=== PATIENT | female | born 1990 | race American Indian/Alaskan Native ===

== ENCOUNTER 2018-01-15 03:44 | Emergency (ER) | payer MEDICAID | END 2018-01-15 03:55 | disposition left against medical advice (07) | LOC: ED 03:44 | DX: R10.9 Unspecified abdominal pain (principal); Z53.21 Procedure and treatment not carried out due to patient leaving prior to being seen by health care provider ==

== ENCOUNTER 2019-01-19 09:16 | Emergency (ER) | payer MEDICAID ==
[2019-01-19 09:58] VITALS: BP 98/55
[2019-01-19 10:42] LABS: Bilirubin,Urine NEG (Negative); Blood,Urine LG (Negative); Color,Urine Red (Yellow); Mucus,Urine 1+ /HPF; Urobilinogen,Urine < 2.0 mg/dL (<2.0)
[2019-01-19 10:43] LABS: RBC,Urine > 182.0 /HPF (0.0-6.0)
[2019-01-19 10:47] LABS: WBC,Urine < 1.0 /HPF (0.0-6.0)
[2019-01-19 10:51] LABS: HCG Qualitative,Urine Negative (Negative)
--- NOTE | 2019-01-19 12:18 | Emergency Department Report ---
ED Abdominal Pain HPI - General Chief Complaint: Abdominal Pain Stated Complaint: ABD PAIN Time Seen by Provider: 01/19/19 10:26 Source: patient Mode of arrival: Ambulatory Limitations: No Limitations - History of Present Illness Initial Comments: This is a 28-year-old -[place] female who presents to the emergency room with pelvic pain that started with menses on 01/16/2019. Patient reports pain for the past 3-4 months with menses since being diagnosed with endometriosis. Past medical history of irritable bowel syndrome and endometriosis. Patient states she was supposed to follow up with [facility] Dr. Clark haven't been able to. Patient states she took ibuprofen 800 mg prior to arrival which has improved pain. She also reports heavy bleeding without clots. She denies lightheadedness, urinary frequency, urgency, dysuria, or back pain. MD Complaint: abdominal pain Onset/Timin -: days(s) Location: suprapubic Radiation: none Migration to: no migration Severity: severe Severity scale (0 -10): 10 Quality: cramping Consistency: constant Improves With: nothing Worsens With: nothing Associated Symptoms: denies other symptoms Treatments Prior to Arrival: NSAIDs - Related Data LMP Date: 01/16/19 Previous Rx's Medication Instructions Recorded Last Taken Type Docusate Sodium [Colace] 100 mg PO BID #60 capsule 02/23/13 Unknown Rx Albuterol Sulfate [Ventolin HFA] 2 puff IH Q4H PRN #1 hfa.aer.ad 09/18/13 Unknown Rx predniSONE [Deltasone] 20 mg PO QDAY #5 tab 09/18/13 Unknown Rx Ibuprofen [Motrin 600 MG tab] 800 mg PO Q8H PRN #30 tablet 09/24/18 Unknown Rx Sulfamethoxazole/Trimethoprim 1 each PO BID 10 Days #20 tablet 09/24/18 Unknown Rx [Bactrim DS TAB] traMADol [Ultram] 50 mg PO Q6HR PRN #12 tablet 09/24/18 Unknown Rx Allergies Allergy/AdvReac Type Severity Reaction Status Date / Time No Known Allergies Allergy Verified 02/17/13 02:38 ED Review of Systems ROS: Stated complaint: ABD PAIN Other details as noted in HPI Constitutional: denies: chills, fever Respiratory: denies: cough, shortness of breath, wheezing Cardiovascular: denies: chest pain, palpitations Gastrointestinal: abdominal pain. denies: nausea, diarrhea Skin: denies: rash, lesions Neurological: denies: headache, weakness, paresthesias Psychiatric: denies: anxiety, depression ED Past Medical Hx - Past Medical History Previous Medical History?: Yes Hx Hypertension: No Hx Congestive Heart Failure: No Hx Diabetes: No Hx Deep Vein Thrombosis: No Hx Renal Disease: No Hx Sickle Cell Disease: No Hx Seizures: No Hx Asthma: No Hx COPD: No Hx HIV: No Additional medical history: Endometriosis, IBS - Surgical History Past Surgical History?: Yes Additional Surgical History: Ex. Lap - Social History Smoking Status: Never Smoker Substance Use Type: None - Medications Home Medications: Home Medications Medication Instructions Recorded Confirmed Last Taken Type Docusate Sodium [Colace] 100 mg PO BID #60 capsule 02/23/13 Unknown Rx Albuterol Sulfate [Ventolin HFA] 2 puff IH Q4H PRN #1 hfa.aer.ad 09/18/13 Unknown Rx predniSONE [Deltasone] 20 mg PO QDAY #5 tab 09/18/13 Unknown Rx Ibuprofen [Motrin 600 MG tab] 800 mg PO Q8H PRN #30 tablet 09/24/18 Unknown Rx Sulfamethoxazole/Trimethoprim 1 each PO BID 10 Days #20 tablet 09/24/18 Unknown Rx [Bactrim DS TAB] traMADol [Ultram] 50 mg PO Q6HR PRN #12 tablet 09/24/18 Unknown Rx ED Physical Exam - General Limitations: No Limitations General appearance: alert, in no apparent distress - Respiratory Respiratory exam: Present: normal lung sounds bilaterally. Absent: respiratory distress - Cardiovascular Cardiovascular Exam: Present: regular rate, normal rhythm. Absent: systolic murmur, diastolic murmur, rubs, gallop - GI/Abdominal GI/Abdominal exam: Present: soft, normal bowel sounds. Absent: distended, tenderness, guarding, rebound, rigid - Back Exam Back exam: Absent: CVA tenderness (R), CVA tenderness (L) - Neurological Exam Neurological exam: Present: alert, oriented X3, normal gait - Psychiatric Psychiatric exam: Present: normal affect, normal mood - Skin Skin exam: Present: warm, dry, intact, normal color. Absent: rash ED Course Vital Signs 01/19/19 09:56 Temperature 98 F Pulse Rate 63 Respiratory 20 Rate Blood Pressure 98/55 O2 Sat by Pulse 99 Oximetry ED Medical Decision Making - Lab Data Lab Results 01/19/19 Range/Units 10:09 Urine Color Red (Yellow) Urine Turbidity Cloudy (Clear) Urine pH 5.0 (5.0-7.0) Ur Specific [place] 1.027 (1.003-1.030) Urine Protein 100 mg/dl (Negative) mg/dL Urine Glucose (UA) 50 (Negative) mg/dL Urine Ketones Neg (Negative) mg/dL Urine Blood Lg (Negative) Urine Nitrite Neg (Negative) Urine Bilirubin Neg (Negative) Urine Urobilinogen < 2.0 (<2.0) mg/dL Ur Leukocyte Esterase Sm (Negative) Urine WBC (Auto) < 1.0 (0.0-6.0) /HPF Urine RBC (Auto) > 182.0 (0.0-6.0) /HPF U Epithel Cells (Auto) 2.0 (0-13.0) /HPF Urine Mucus 1+ /HPF Urine HCG, Qual Negative (Negative) - Medical Decision Making This patient was seen by this provider. Vitals are stable. Past medical history of irritable bowel syndrome and endometriosis. Patient presents to the emergency room with severe abdominal cramps. Patient states she was diagnosed with endometriosis but never followed up with Dr. Clark. Reports pain monthly with menses. She took ibuprofen 800 mg prior to arrival which has improved pain. A urinalysis and urine test was obtained. Urinalysis findings of a large amount of blood and leukocyte esterase, negative test. The nursing staff states patient was not in room with attempt to offer pain medication. Critical care attestation.: If time is entered above; I have spent that time in minutes in the direct care of this critically ill patient, excluding procedure time. ED Disposition Clinical Impression: Left against medical advice Disposition: DC-07 LEFT AGAINST MED ADVICE Is pt being admited?: No Condition: Stable Instructions: Abdominal Pain (ED)
== END 2019-01-19 12:20 | disposition left against medical advice (07) ==
LOC: ED 09:16
DX: N71.9 Inflammatory disease of uterus, unspecified (principal); Z79.1 Long term (current) use of non-steroidal anti-inflammatories (NSAID); Z79.899 Other long term (current) drug therapy
CPT/HCPCS: 81001; 81025; 99283

== ENCOUNTER 2019-01-23 23:49 | Emergency (ER) | payer OTHER, MEDICAID ==
[2019-01-24] MEDS ORDERED: IBUPROFEN PO ONE (02:33)
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
[2019-01-24 03:51] VITALS: BP 103/66
== END 2019-01-24 03:50 | disposition home or self-care (01) ==
LOC: ED 23:49
DX: S39.012A Strain of muscle, fascia and tendon of lower back, initial encounter (principal); M79.604 Pain in right leg; V49.49XA Driver injured in collision with other motor vehicles in traffic accident, initial encounter; Y93.89 Activity, other specified; Y92.488 Other paved roadways as the place of occurrence of the external cause; Y99.8 Other external cause status
CPT/HCPCS: 99282

== ENCOUNTER 2020-07-06 07:03 | Day surgery (SDC) | payer MEDICAID, OTHER ==
[2020-07-06] MEDS ORDERED: HYDROmorphone 1 MG/1 ML INJ IV PRN (08:02)
[2020-07-06] MEDS ORDERED: ONDANSETRON 4 MG/2 ML INJ IV PRN (08:02)
--- NOTE | 2020-07-06 08:03 | Anesthesia Day of Surgery ---
Anesthesia Day of Surgery - Day of Surgery Patient Examined: Yes Patient H&P Reviewed: Yes Patient is NPO: Yes
--- NOTE | 2020-07-06 08:04 | Anesthesia Consultation ---
Anesthesia Consult and Med Hx Date of service: 07/06/20 - Airway Anesthetic Teeth Evaluation: Good ROM Head & Neck: Adequate Mental/Hyoid Distance: Adequate Mallampati Class: Class II Intubation Access Assessment: Good - Pre-Operative Health Status ASA Pre-Surgery Classification: ASA2 Proposed Anesthetic Plan: General - Pulmonary Hx Asthma: No Hx Respiratory Symptoms: No (+2FS) COPD: No Hx Pneumonia: No - Cardiovascular System Hx Hypertension: No - Central Nervous System Hx Seizures: No Hx Psychiatric Problems: No - Gastrointestinal Hx Gastroesophageal Reflux Disease: No (Constipation) - Endocrine Hx Renal Disease: No Hx End Stage Renal Disease: No Hx Hypothyroidism: No Hx Hyperthyroidism: No - Hematic Hx Anemia: No Hx Sickle Cell Disease: No - Other Systems Hx Alcohol Use: Yes (Occas) Hx Cancer: No
[2020-07-06] MEDS ORDERED: fentaNYL 100 MCG/2 ML INJ ONE (08:11)
[2020-07-06] MEDS ORDERED: ROCURONIUM 50 MG/5 ML INJ IV ONE (08:11)
[2020-07-06] MEDS ORDERED: LIDOCAINE MPF (2%) 20 MG/1 ML VIAL 5 ML ONE (08:11)
[2020-07-06] MEDS ORDERED: dexAMETHasone 20 MG/5 ML VIAL ONE (08:11)
[2020-07-06] MEDS ORDERED: propofoL 200 MG/20 ML VIAL IV ONE (08:12)
[2020-07-06] MEDS ORDERED: LACTATED RINGERS 1,000 ML IV SCH (08:15)
[2020-07-06] MEDS ORDERED: PHENYLEPHRINE/NS 1,000 MCG/10 ML SYRINGE (OR USE) IV ONE (09:00)
[2020-07-06] MEDS ORDERED: GLYCOPYRROLATE 0.4 MG/2 ML INJ ONE (09:00)
[2020-07-06] MEDS ORDERED: SUCCINYLCHOLINE CHLORIDE 200 MG/10 ML INJ MDV ONE (09:00)
[2020-07-06] MEDS ORDERED: NEOSTIGMINE 10MG/10 ML INJ MDV ONE (09:00)
--- NOTE | 2020-07-06 09:47 | Short Stay Summary ---
Short Stay Documentation Date of service: 07/06/20 Narrative H&P: 30-year-old -0-0-1 with a history of chronic pelvic pain. The patient has a history of an endometriosis in the past and has undergone medical therapy which and it has not completely alleviated her symptoms. The patient has elected to undergo surgical management to further identify a cause for her pain. - History Principal diagnosis: Chronic pelvic pain Past Medical History: other (Endometriosis) Past Surgical History: Other (Laparoscopy) Social history: single - Allergies and Medications Current Medications: Allergies Iodine and Iodide Containing Produc Allergy (Verified 06/29/20 10:03) Swelling Active Medications Hydromorphone HCl (Hydromorphone 1 Mg/1 Ml Inj) 0.25 mg IV Q10MIN PRN PRN Reason: Pain, Moderate (4-6) Stop: 07/06/20 23:00 Hydromorphone HCl (Hydromorphone 1 Mg/1 Ml Inj) 0.5 mg IV Q10MIN PRN PRN Reason: Pain , Severe (7-10) Stop: 07/06/20 23:00 Lactated Ringer's (Lactated Ringers) 1,000 mls @ 125 mls/hr IV DIRECT BONIFACIO Ondansetron HCl (Ondansetron 4 Mg/2 Ml Inj) 4 mg IV ONCE PRN PRN Reason: Nausea And Vomiting Stop: 07/06/20 18:00 - Physical exam General appearance: no acute distress Integumentary: no rash HEENT: Atraumatic Lungs: Clear to auscultation Breasts: deferred Heart: Regular rate Gastrointestinal: normal Female Genitourinary: deferred Rectal Exam: deferred Extremities: no ischemia Neurological: Normal gait - Brief post op/procedure progress note Date of procedure: 07/06/20 Pre-op diagnosis: Chronic pelvic pain Post-op diagnosis: same Procedure: Laparoscopy Anesthesia: VELVETA Surgeon: VINICIUS SZYMANSKI Estimated blood loss: none Pathology: none Condition: stable - Hospital course Hospital course: The patient was admitted the day of surgery and underwent a diagnostic laparoscopy. Please see operative note for details of surgery. Her postoperative course was uneventful. - Disposition Condition at discharge: Good Disposition: DC-01 TO HOME OR SELFCARE Short Stay Discharge Plan Activity: other (Pelvic rest for 1 week) Diet: regular Additional Instructions: Patient can schedule follow-up with Dr. Szymanski in 2 weeks Prescriptions: Naproxen [Naprosyn] 500 mg PO BID PRN #60 tablet PRN Reason: Pain , Severe (7-10) HYDROcodone/APAP 5-325 [[place] 5/325] 1 each PO Q6HR PRN #20 tablet PRN Reason: Pain
[2020-07-06] MEDS ORDERED: BUPIVACAINE/PF (0.5%) 5 MG/1 ML 30 ML VIAL INFILTRATI ONE ×2 (10:32→11:50)
[2020-07-06] MEDS ORDERED: MIDAZOLAM 2 MG/2 ML INJ ONE (11:00)
[2020-07-06] MEDS ORDERED: KETOROLAC 30 MG/1 ML INJ ONE (11:38)
--- NOTE | 2020-07-06 11:53 | Operative Report ---
Operative Report Operative Report: Date of surgery: July 06, 2020 Preoperative diagnosis: Chronic pelvic pain Postoperative diagnosis: Same as above Procedure: Diagnostic laparoscopy Surgeon: Anne Issa M.D. Anesthesia: General endotracheal anesthesia Estimated blood loss: Minimal Findings: Normal uterus tubes and ovaries Indication: 30-year-old -0-0-1 with a history of chronic pelvic pain. Patient's medical therapy was not adequately controlling her pain therefore she elected to undergo surgical management Procedure: The patient was taken to the operating room and given general endotracheal anesthesia without complication. The patient is prepped and draped in a normal sterile fashion. A bivalve speculum was placed in the patient's vagina and a single-tooth tenaculum was placed on the anterior lip of the cervix .A uterine acorn manipulator was placed, and the bivalve speculum was then removed. Attention was then turned to the patient's abdomen where a 5 mm infraumbilical skin incision was then made. A Veress needle was placed and peritoneal entry was verified water-filled syringe. Insufflation of the peritoneal cavity was performed with CO2 gas. A 5 mm trocar was placed and the laparoscope was then inserted. The patient was then placed in Trendelenburg. A 5 mm suprapubic skin incision was then made. Under direct visualization a 5 mm trocar was then placed. General survey of the patient's abdomen revealed normal uterus tubes and ovaries. There was evidence of a small amount of scarring in the posterior cul-de-sac however no endometriotic implants could be identified visually. No findings of pelvic adhesive disease. The trocars were then removed. The pneumoperitoneum was then released. The 5 mm trocar laparoscope was then removed. The skin incisions were then closed with 4-0 Monocryl. The incisions were injected with quarter percent Marcaine. Dressings were applied to the incision. The vaginal instruments were then removed atraumatically. Then successfully extubated and taken to the recovery room. All sponge laps and needle counts were correct x2.
[2020-07-06] MEDS: HYDROmorphone 1 MG/1 ML INJ IV PRN ×3 (12:19→12:38)
[2020-07-06 13:48] VITALS: BP 109/73
--- NOTE | 2020-07-06 13:58 | Post Anesthesia Evaluation ---
- Post Anesthesia Evaluation Patient Participated: Yes Airway Patent: Yes Stable Respiratory Function: Yes Nausea/Vomiting: No Temp > 96.8F: Yes Pain Manageable: Yes Adequeate Hydration: Yes Anesthesia Complications: No Block Receding Appropriately: Not Applicable Patient on Ventilator: No
== END 2020-07-06 07:04 | disposition home or self-care (01) ==
LOC: OR 07:03
PROVIDERS: ATTEND Obstetrics & Gynecology
DX: R10.2 Pelvic and perineal pain (principal); G89.29 Other chronic pain; K21.9 Gastro-esophageal reflux disease without esophagitis; Z72.89 Other problems related to lifestyle; Z79.899 Other long term (current) drug therapy; Z98.890 Other specified postprocedural states
CPT/HCPCS: 49320; 81025; J0330; J1100; J1170; J1885; J2250; J2370; J2405; J2704; J2710; J3010; J7120

== ENCOUNTER 2021-08-03 05:42 | Day surgery (SDC) | payer MEDICAID, OTHER ==
[~2021-08-03 05:42] MED LIST: LACTATED RINGERS 1,000 ML IV SCH; MIDAZOLAM 2 MG/2 ML INJ IV NR
--- NOTE | 2021-08-03 07:10 | Anesthesia Consultation ---
Anesthesia Consult and Med Hx - Airway Anesthetic Teeth Evaluation: Good ROM Head & Neck: Adequate Mental/Hyoid Distance: Adequate Mallampati Class: Class II Intubation Access Assessment: Good - Pulmonary Exam CTA: Yes - Cardiac Exam Cardiac Exam: RRR - Pre-Operative Health Status ASA Pre-Surgery Classification: ASA1 Proposed Anesthetic Plan: General (Labs and Chart reviewed. All questions answered) - Pulmonary Hx Asthma: No Hx Respiratory Symptoms: No (+2FS) COPD: No Hx Pneumonia: No - Cardiovascular System Hx Hypertension: No - Central Nervous System Hx Seizures: No Hx Psychiatric Problems: No - Gastrointestinal Hx Gastroesophageal Reflux Disease: No (Constipation) - Endocrine Hx Renal Disease: No Hx End Stage Renal Disease: No Hx Hypothyroidism: No Hx Hyperthyroidism: No - Hematic Hx Anemia: No Hx Sickle Cell Disease: No - Other Systems Hx Alcohol Use: Yes (Occas) Hx Cancer: No
--- NOTE | 2021-08-03 07:11 | Anesthesia Day of Surgery ---
Anesthesia Day of Surgery - Day of Surgery Patient Examined: Yes Patient H&P Reviewed: Yes Patient is NPO: Yes
[2021-08-03] MEDS ORDERED: ROCURONIUM 50 MG/5 ML INJ IV ONE (07:52)
[2021-08-03] MEDS ORDERED: LIDOCAINE MPF (2%) 20 MG/1 ML VIAL 5 ML ONE (07:52)
[2021-08-03] MEDS ORDERED: fentaNYL 250 MCG/5 ML INJ ONE (07:53)
[2021-08-03] MEDS ORDERED: propofoL 200 MG/20 ML VIAL IV ONE (07:53)
[2021-08-03] MEDS ORDERED: MIDAZOLAM 2 MG/2 ML INJ IV NR (08:00)
[2021-08-03] MEDS ORDERED: HYDROmorphone 1 MG/1 ML INJ IV PRN ×2 (08:05)
[2021-08-03] MEDS ORDERED: ONDANSETRON 4 MG/2 ML INJ IV PRN (08:05)
[2021-08-03] MEDS ORDERED: NALOXONE 0.4 MG/1 ML INJ IV PRN (08:05)
[2021-08-03] MEDS ORDERED: MEPERIDINE 25 MG/1 ML INJ IV PRN (08:05)
[2021-08-03] MEDS ORDERED: BUPIVACAINE/PF (0.5%) 5 MG/1 ML 10 ML VIAL INFILTRATI ONE ×2 (08:06→09:41)
--- NOTE | 2021-08-03 08:22 | Short Stay Summary ---
Short Stay Documentation Date of service: 08/03/21 Narrative H&P: 31-year-old -0-0-1 with a history of chronic pelvic pain. The patient reports worsening right lower quadrant pain. She had a pelvic ultrasound that demonstrated findings of an ovarian cyst. The patient has elected for surgical management of her symptoms. - History Principal diagnosis: Chronic pelvic pain Past Medical History: other (Endometriosis; depression) Past Surgical History: Other (Laparoscopy) Social history: single - Allergies and Medications Current Medications: Allergies Iodinated Contrast Media Allergy (Verified 08/03/21 07:21) Swelling Iodine and Iodide Containing Produc Allergy (Verified 07/26/21 17:56) Swelling Home Medications Medication Instructions Recorded Confirmed Last Taken Type No Known Home Medications [No 07/26/21 07/26/21 Unknown History Reported Home Medications] Active Medications Hydromorphone HCl (Hydromorphone 1 Mg/1 Ml Inj) 0.25 mg IV Q10MIN PRN PRN Reason: Pain, Moderate (4-6) Stop: 08/03/21 23:00 Hydromorphone HCl (Hydromorphone 1 Mg/1 Ml Inj) 0.5 mg IV Q10MIN PRN PRN Reason: Pain , Severe (7-10) Stop: 08/03/21 23:00 Lactated Ringer's (Lactated Ringers) 1,000 mls @ 42 mls/hr IV DIRECT BONIFACIO Last Admin: 08/03/21 06:40 Dose: 42 mls/hr Meperidine HCl (Meperidine 25 Mg/1 Ml Inj) 25 mg IV ONCE PRN PRN Reason: Shivering Stop: 08/03/21 12:00 Midazolam HCl (Midazolam 2 Mg/2 Ml Inj) 2 mg IV PREOP NR Stop: 08/03/21 23:59 Naloxone HCl (Naloxone 0.4 Mg/1 Ml Inj) 0.1 mg IV Q2MIN PRN PRN Reason: Res Rate </= 8 or 02 SAT < 92% Ondansetron HCl (Ondansetron 4 Mg/2 Ml Inj) 4 mg IV ONCE PRN PRN Reason: Nausea And Vomiting - Physical exam General appearance: no acute distress HEENT: Atraumatic Lungs: Clear to auscultation Breasts: deferred Heart: Regular rate Gastrointestinal: normal Female Genitourinary: deferred Rectal Exam: deferred - Brief post op/procedure progress note Date of procedure: 08/03/21 Pre-op diagnosis: Chronic pelvic pain Post-op diagnosis: same Procedure: Laparoscopy Ovarian cystectomy Anesthesia: VELVETA Surgeon: VINICIUS SZYMANSKI Estimated blood loss: minimal Pathology: none Condition: stable - Hospital course Hospital course: The patient was admitted the day of surgery underwent a laparoscopy. Please see operative note for details of surgery. Her postoperative course was uneventful. - Disposition Condition at discharge: Good Disposition: 01 HOME / SELF CARE / HOMELESS Short Stay Discharge Plan Activity: other (Pelvic rest for 1 week) Diet: regular Additional Instructions: Schedule follow-up with Dr. Szymanski in 2 weeks Prescriptions: Ibuprofen [Motrin] 800 mg PO Q8HR PRN #30 tablet PRN Reason: Pain , Severe (7-10) HYDROcodone/APAP 5-325 [[place] 5/325] 1 each PO Q6HR PRN #20 tablet PRN Reason: Pain
[2021-08-03] MEDS ORDERED: dexAMETHasone 20 MG/5 ML VIAL ONE (08:42)
[2021-08-03] MEDS ORDERED: ONDANSETRON 4 MG/2 ML INJ ONE (08:42)
[2021-08-03] MEDS ORDERED: KETOROLAC 30 MG/1 ML INJ ONE (09:18)
--- NOTE | 2021-08-03 09:26 | Operative Report ---
Operative Report Operative Report: Date of surgery: August 03, 2021 Preoperative diagnosis: Chronic pelvic pain Postoperative diagnosis: Same as above; right ovarian cyst; pelvic congestion Procedure: Laparoscopy; right ovarian cystotomy Surgeon: Anne Issa M.D. Anesthesia: General endotracheal anesthesia Estimated blood loss: Minimal Pathology: None Findings: Normal uterus and tubes bilaterally. Small right ovarian cyst normal left ovary Indication: 31-year-old -0-0-1 with a history of chronic pelvic pain. Procedure: The patient was taken to the operating room and given general endotracheal anesthesia without complication. The patient is prepped and draped in a normal sterile fashion. A bivalve speculum was placed in the patient's vagina and a single-tooth tenaculum was placed on the anterior lip of the cervix .A uterine acorn manipulator was placed, and the bivalve speculum was then removed. Attention was then turned to the patient's abdomen where a 5 mm infraumbilical skin incision was then made. A Veress needle was placed and peritoneal entry was verified water-filled syringe. Insufflation of the peritoneal cavity was performed with CO2 gas. A 5 mm trocar was placed and the laparoscope was then inserted. The patient was then placed in Trendelenburg. A 5 mm suprapubic skin incision was then made. Under direct visualization a 5 mm trocar was then placed. An additional 5 mm left lateral trocar was also placed. General survey of the patient's abdomen revealed normal uterus and tubes bilaterally. Normal left ovary with a small right ovarian cyst. No endometriotic implants were identified. Patient demonstrated evidence of pelvic congestion syndrome. The monopolar scissors were used to incise the right ovarian cyst with drainage of clear serous fluid. There was noted to be a small amount of bleeding coming from the ovarian cortex. Cauterization of the ovarian cortex was performed. Surgicel powder was placed on the surgical site. The trocars were then removed. The pneumoperitoneum was then released. The 5 mm trocar laparoscope was then removed. The skin incisions were then closed with 4-0 Monocryl. The incisions were injected with quarter percent Marcaine. Dressings were applied to the incision. The vaginal instruments were then removed atraumatically. Then successfully extubated and taken to the recovery room. All sponge laps and needle counts were correct x2.
[2021-08-03] MEDS ORDERED: WATER FOR IRRIG STERILE 1,500 ML BOTTLE IR ONE (09:41)
--- NOTE | 2021-08-03 10:33 | Post Anesthesia Evaluation ---
- Post Anesthesia Evaluation Patient Participated: Yes Airway Patent: Yes Stable Respiratory Function: Yes Nausea/Vomiting: Yes Temp > 96.8F: Yes Pain Manageable: Yes Adequeate Hydration: Yes Anesthesia Complications: No
[2021-08-03 11:13] VITALS: BP 108/68
== END 2021-08-03 11:25 | disposition home or self-care (01) ==
LOC: OR 05:42
PROVIDERS: ATTEND Obstetrics & Gynecology
DX: R10.2 Pelvic and perineal pain (principal); G89.29 Other chronic pain; N83.201 Unspecified ovarian cyst, right side; Z91.041 Radiographic dye allergy status; Z79.899 Other long term (current) drug therapy; Z88.8 Allergy status to other drugs, medicaments and biological substances; Z87.440 Personal history of urinary (tract) infections; Z72.89 Other problems related to lifestyle; Z98.890 Other specified postprocedural states
CPT/HCPCS: 58679; 81025; J1100; J1170; J1885; J2175; J2250; J2405; J2704; J3010; J3490; J7120